=== PATIENT | female | born 1945 | race Caucasian/White ===

== ENCOUNTER 2017-06-23 07:26 | Day surgery (SDC) | payer MEDICARE, OTHER ==
[~2017-06-23] VITALS: Ht 162.6 cm; Wt 61.4 kg
[~2017-06-23 07:26] MED LIST: AMIT10 PO; Aspirin EC81 MG; Budeprion Xl300 MG PO; CALCAVITD PO; CHOL10002; CRANBERRY250 MG; DHEA PO; Daily Multiple1 EACH PO; GLUCOSAMIN-CHO1 EACH; IRON18 MG; LEVSOD100 PO; NEXIUM 24HR20 MG PO; OXAP600 PO; Super B Comple1 EAC2 PO
== END 2017-06-23 09:45 | disposition home or self-care (01) ==
LOC: ORSCSDS 07:26
PROVIDERS: Orthopaedic Surgery
PROC: 01N50ZZ Release Median Nerve, Open Approach (ICD-10-PCS; principal; 2017-06-23 09:00)
DX: G56.01 Carpal tunnel syndrome, right upper limb (principal)
CPT/HCPCS: J2250; J3010; J7120

== ENCOUNTER → 2020-04-01 | Outpatient (CLI) | payer MEDICARE, OTHER ==
[~2020-04-01] MED LIST changes: +ACET325 PO; +BUPROPION XL150 M1 PO; +CALCIUM 600 +1 EA11 PO; +CEFP200 PO; +Cran-Max500 MG PO; +ESOMEPRAZOLE MA40 MG PO; +LISI20 PO; +MELO7.5 PO; +ONDA4ODT MM; +PROBIOTIC250 MG PO; +SYNTHROID100 MCG PO; +Vitamin B Comple1 EA PO; +Vitamin D2000 UNIT PO
[2020-04-02 13:23] LABS: Stool Occult Bld Immuno 1 Negative (NEGATIVE); Stool Occult Bld Immuno 2 Negative (NEGATIVE)
== END | disposition home or self-care (01) ==
LOC: LAB SHORT 06:12 → LAB 06:12 → EDSTATUS 03-13 14:30 → LAB FUT 03-13 14:30
PROVIDERS: Internal Medicine Gastroenterology
DX: Z12.11 Encounter for screening for malignant neoplasm of colon (principal)
CPT/HCPCS: G0328

== ENCOUNTER 2021-02-07 10:01 | Day surgery (SDC) | payer MEDICARE, OTHER ==
[~2021-02-07] VITALS: Ht 160 cm; Wt 67.6 kg
[2021-02-07] MEDS ORDERED: HYDROCHLOROTH12.5 MG PO (10:30)
--- NOTE | 2021-02-07 10:35 | NUR ---
Ambulatory in Day Surgery History, Chart, Medications and Allergies reviewed before start of procedure. Lungs clear T/O to Auscultation. Pre-Op teaching done. Pt verbalizes understanding. Patient States Post-Procedure ride home has been arranged.
--- NOTE | 2021-02-07 12:01 | NUR ---
02/07/21 1201 Pedro Callahan History, Chart, Medications and Allergies reviewed before start of procedure. Patient confirms NPO status and agrees with scheduled surgery. 3-LEAD EKG REVIEWED WITH PHYSICIAN PRIOR TO START OF PROCEDURE. MONITOR INTACT WITH CONTINUOUS PULSE OXIMETRY AND INTERMITTENT BP. PATIENT DETERMINED TO BE ASA APPROPRIATE FOR PROPOFOL SEDATION PRIOR TO START OF PROCEDURE BY DR. CURRIE. Bite Block Placed AND REMOVED.
--- NOTE | 2021-02-07 12:50 | NUR ---
Discharge instructions reviewed with patient. Patient verbalizes understanding. Copy given to patient to take home. Patient States Post-Procedure ride home has been arranged. Discharged via wheelchair to private car for ride home.
== END 2021-02-07 22:57 | disposition home or self-care (01) ==
LOC: ORSCMMR 10:01 → ORSCSDS 11:30 → ORSCMMR 11:30
PROVIDERS: Surgery
PROC: 0DB78ZX Excision of Stomach, Pylorus, Via Natural or Artificial Opening Endoscopic, Diagnostic (ICD-10-PCS; principal; 2021-02-07 11:30)
DX: K21.9 Gastro-esophageal reflux disease without esophagitis (principal); K44.9 Diaphragmatic hernia without obstruction or gangrene; I10 Essential (primary) hypertension; E03.9 Hypothyroidism, unspecified; Z79.899 Other long term (current) drug therapy
CPT/HCPCS: 88305; 88342; J2704; J7120

== ENCOUNTER 2021-04-05 09:56 | Day surgery (SDC) | payer MEDICARE, OTHER ==
[~2021-04-05] VITALS: Ht 160 cm; Wt 66.5 kg
[~2021-04-05 09:56] MED LIST changes: +HYDROCHLOROTH12.5 MG PO
== END 2021-04-05 13:21 | disposition home or self-care (01) ==
LOC: ORSCSDS 09:56
PROVIDERS: Podiatrist Foot & Ankle Surgery
PROC: 0SGP04Z Fusion of Right Toe Phalangeal Joint with Internal Fixation Device, Open Approach (ICD-10-PCS; principal; 2021-04-05 11:30)
DX: M20.41 Other hammer toe(s) (acquired), right foot (principal); I10 Essential (primary) hypertension; K21.9 Gastro-esophageal reflux disease without esophagitis; E03.9 Hypothyroidism, unspecified; Z79.899 Other long term (current) drug therapy
CPT/HCPCS: C1713; J0690; J1100; J1885; J2250; J2405; J2704; J3010; J7120

== ENCOUNTER 2021-12-01 06:59 | Emergency (ER) | payer MEDICARE, OTHER ==
[~2021-12-01] VITALS: Ht 160 cm; Wt 61.2 kg
[2021-12-01] MEDS ORDERED: LOSA25 PO (07:25)
[2021-12-01] MEDS ORDERED: OXYB5 PO (07:26)
[2021-12-01] MEDS ORDERED: Nexium40 MG PO (07:26)
[2021-12-01] MEDS ORDERED: Aspir 8181 MG PO (07:27)
[2021-12-01 07:28] LABS: Source, Urine Clean Catch
[2021-12-01 07:32] LABS: Appearance, Urine Cloudy (Clear); Bilirubin, Urine Neg (Neg); Blood, Urine 4+ (Neg); Color, Urine Yellow (P-Yellow); Glucose Qualitative, Urine Neg (Neg); Ketones, Urine Neg (Neg); Leukocyte Esterase, Urine 3+ (Neg); Nitrite, Urine Neg (Neg); Protein, Urine 2+ (Neg); Urobilinogen, Urine NORM (Normal)
[2021-12-01 07:43] LABS: Bacteria Mod /hpf; Mucus Light (0-Heavy); Red Blood Cells, Urine 50-100 /hpf (0-2); Renal Epithelial Few /hpf (0-Rare); Squamous Epithelial Cells Rare /hpf (Few); White Blood Cells, Urine 50-100 /hpf (0-5)
[2021-12-01] MEDS ORDERED: CEPH500 PO (07:51)
== END 2021-12-01 07:58 | disposition home or self-care (01) ==
LOC: ER 06:59
PROVIDERS: Emergency Medicine
DX: N39.0 Urinary tract infection, site not specified (principal); K21.9 Gastro-esophageal reflux disease without esophagitis; E03.9 Hypothyroidism, unspecified; I10 Essential (primary) hypertension; Z88.5 Allergy status to narcotic agent; Z88.8 Allergy status to other drugs, medicaments and biological substances; Z79.899 Other long term (current) drug therapy; Z79.82 Long term (current) use of aspirin
CPT/HCPCS: 81001; A9270

== ENCOUNTER 2022-01-31 05:55 | Day surgery (SDC) | payer MEDICARE, OTHER ==
[~2022-01-31] VITALS: Ht 154.9 cm; Wt 57.4 kg
[~2022-01-31 05:55] MED LIST changes: +Aspir 8181 MG PO; +CEPH500 PO; +LOSA25 PO; +Nexium40 MG PO; +OXYB5 PO
[2022-01-31] MEDS ORDERED: MERIBIN5 MG PO (06:45)
--- NOTE | 2022-01-31 07:10 | NUR ---
Ambulatory in Day Surgery History, Chart, Medications and Allergies reviewed before start of procedure. Lungs clear T/O to Auscultation. Pre-Op teaching done. Pt verbalizes understanding.
--- NOTE | 2022-01-31 17:41 | NUR ---
SUMMARY PT POD0 FOR HIATAL HERNIA REPAIR W/TOUPET FUNDIPLICATION. PT A&0X4. MEDICATED W/TORADOL AND DILAUDID PER ORDERS FOR PAIN. PT REPORTS PAIN TOLERABLE AT THIS TIME. PT TOOK SIPS OF WATER AND BITE OF JELLO AND REPORTS BURPED AND FLUIDS "CAME UP". DENIES ANY NAUSEA. SITTING UP IN BED. IV FLUIDS INFUSING PER ORDERS. 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 CALL LIGHT IN REACH.
--- NOTE | 2022-01-31 18:25 | NUR ---
turned over care to david ross rn
[2022-02-01 04:51] LABS: Hematocrit 30.4 % (33.0-51.0); Hemoglobin 10.3 g/dL (11.5-16.0); Mean Corpuscular HGB Conc 33.9 g/dL (31.5-36.5); Mean Corpuscular Volume 89 fL (80-100); Mean Platelet Volume 8.4 fL (9.1-12.4); Platelet Count 339 K/mm3 (150-400); RDW Coefficient Variation 14.9 % (11.7-14.2); RDW Standard Deviation 48.1 fL (35.1-46.3); Red Blood Cell Count 3.43 M/mm3 (3.80-5.20); White Blood Cell Count 8.96 K/mm3 (4.00-11.30)
[2022-02-01 04:59] LABS: Calcium, Blood 8.8 mg/dL (8.5-10.1); Creatinine, Blood 0.57 mg/dL (0.40-1.00); Potassium, Blood 3.6 mmol/L (3.5-5.5)
--- NOTE | 2022-02-01 06:18 | NUR ---
SHIFT SUMMARY A/O X4- POD1 HERNIA REPAIR, 4X LAP SITES DOC W/ DERMABOND C.D.I. PT IS SBA TO BATHROOM, VOIDING WELL. VITAL SIGNS STABLE.PAIN MANAGED W/ PO PAIN MEDICATION. TOLERATING CLEAR LIQ THROUGHOUT THE NIGHT. WILL CONTINUE TO MONITOR AND REPORT TO ONCOMING RN.
--- NOTE | 2022-02-01 14:45 | NUR ---
DISCHARGE POD1 HERNIA REPAIR. X4 LAP SITES TO ABD APPEAR C/D/I. PATIENT TOLERATING FULL LIQUID DIET WELL. DENIES N/V & ABDOMINAL PAIN. REPORTS PASSING FLATUS. AMBULATING HALLS WELL. DISCUSSED DISCHARGE INSTRUCTIONS & SENT WITH PATIENT. ALSO SENT SCRIPT FOR NORCO WITH PATIENT. ESCORTED OUT VIA W/C.
== END 2022-02-01 14:55 | disposition home or self-care (01) ==
LOC: ORSCMMR 05:55 → ORD 07:30 → SURS 10:39 → ORSCMMR 02-01 14:55
PROVIDERS: Surgery
PROC: 8E0W4CZ Robotic Assisted Procedure of Trunk Region, Percutaneous Endoscopic Approach (ICD-10-PCS; principal; 2022-01-31 07:30)
PROC: 0BQT4ZZ Repair Diaphragm, Percutaneous Endoscopic Approach (ICD-10-PCS; principal; 2022-01-31 07:30)
DX: K44.9 Diaphragmatic hernia without obstruction or gangrene (principal); K21.9 Gastro-esophageal reflux disease without esophagitis; I10 Essential (primary) hypertension; E03.9 Hypothyroidism, unspecified; Z79.82 Long term (current) use of aspirin; Z79.899 Other long term (current) drug therapy
CPT/HCPCS: 43281; S2900; 36415; 80048; 85027; A9270; J0690; J1100; J1170; J1650; J1885; J2370; J2405; J2704; J2795; J3010; J7120

== ENCOUNTER 2023-03-06 20:34 | Emergency (ER) | payer MEDICARE, OTHER ==
[~2023-03-06] VITALS: Ht 152.4 cm; Wt 54.4 kg
[~2023-03-06 20:34] MED LIST changes: +MERIBIN5 MG PO
[2023-03-06 21:05] LABS: BASOPHILS ABSOLUTE AUTO 0.03 K/mm3 (0.00-0.23); BASOPHILS PERCENT AUTO 0 % (0-2); EOSINOPHILS ABSOLUTE AUTO 0.26 K/mm3 (0.00-0.68); EOSINOPHILS PERCENT AUTO 2 % (0-6); Hematocrit 38.5 % (33.0-51.0); Hemoglobin 12.9 g/dL (11.5-16.0); IMMATURE GRAN ABSOLUTE AUTO 0.03 K/mm3 (0.00-0.10); IMMATURE GRAN PERCENT AUTO 0 % (0-1); LYMPHOCYTES ABSOLUTE AUTO 1.46 K/mm3 (0.84-5.20); LYMPHOCYTES PERCENT AUTO 14 % (21-46); MONOCYTES ABSOLUTE AUTO 0.94 K/mm3 (0.16-1.47); MONOCYTES PERCENT AUTO 9 % (4-13); Mean Corpuscular HGB 31.8 pg (26.0-34.0); Mean Corpuscular HGB Conc 33.5 g/dL (31.5-36.5); Mean Corpuscular Volume 95 fL (80-100); Mean Platelet Volume 8.9 fL (9.1-12.4); NEUTROPHILS PERCENT AUTO 75 % (41-73); Platelet Count 354 K/mm3 (150-400); RDW Coefficient Variation 12.6 % (11.7-14.2); RDW Standard Deviation 43.7 fL (35.1-46.3); Red Blood Cell Count 4.06 M/mm3 (3.80-5.20); White Blood Cell Count 10.72 K/mm3 (4.00-11.30)
[2023-03-06 21:19] LABS: Albumin, Blood 3.6 g/dL (3.4-5.0); Albumin/Globulin Ratio 1.1 (0.8-1.8); Bilirubin, Total 0.1 mg/dL (0.1-1.0); Bun/Creatinine Ratio 28.5 (12.0-20.0); Calcium, Blood 8.6 mg/dL (8.5-10.1); Creatinine, Blood 0.63 mg/dL (0.40-1.00); Globulin, Blood 3.4 g/dL (2.2-4.0); Potassium, Blood 3.6 mmol/L (3.5-5.5)
[2023-03-07] VITALS: BP 138/80
[2023-03-07] MEDS ORDERED: ONDA4ODT MM (00:04)
== END 2023-03-07 00:19 | disposition home or self-care (01) ==
LOC: ER 20:34
PROVIDERS: Student in an Organized Health Care Education/Training Program
DX: R07.89 Other chest pain (principal); R11.0 Nausea; I10 Essential (primary) hypertension; E03.9 Hypothyroidism, unspecified; K21.9 Gastro-esophageal reflux disease without esophagitis; Z79.82 Long term (current) use of aspirin; Z79.1 Long term (current) use of non-steroidal anti-inflammatories (NSAID); Z79.899 Other long term (current) drug therapy; Z88.5 Allergy status to narcotic agent; Z88.8 Allergy status to other drugs, medicaments and biological substances
CPT/HCPCS: 71046; 80053; 83690; 84484; 85025; 93005; 93010; 99285-25